=== PATIENT | male | born 2000 | race Caucasian/White ===

== ENCOUNTER → 2022-02-01 15:47 | Outpatient (CLI) | payer OTHER, SELFPAY ==
--- NOTE | 2022-02-01 16:04 | XR_ITS ---
FINAL REPORT CLINICAL HISTORY: LUMBAGO WITH SCIATICA, LEFT SIDE Patient states he lifted a heavy object last glenn and his back popped. FINDINGS: AP and lateral views were obtained. There is no acute fracture. There is no malalignment. There is mild disc space narrowing at L5-S1. IMPRESSION: Mild disc space narrowing at L5-S1. Reviewed, Interpreted and Dictated by Jean Garza MD Transcribed by Edy Montana Authenticated and [facility]
== END ==
PROVIDERS: PCP Nurse Practitioner Family; Visit Provider Nurse Practitioner Family
DX: M54.42 Lumbago with sciatica, left side (principal)
CPT/HCPCS: 72100